=== PATIENT | male | born 1975 | race Caucasian/White ===

== ENCOUNTER 2023-11-17 15:33 | Emergency (ER) | payer OTHER, SELFPAY ==
[2023-11-17 15:46] VITALS: BP 127/86; PULSE 77; RESP 16; TEMP 37.3; O2SAT 98
[2023-11-17] MEDS: TETANUS,DIPHTHERIA,AC PERTUSSIS ADULT (0.5 ML) BOOSTRIX IM (15:56)
--- NOTE | 2023-11-17 15:57 | ED.WOUNDLAC ---
HPI - Wound/Laceration General Chief Complaint: Wound/Laceration Stated Complaint: Cut Finger/Strep Symptoms Time Seen by Provider: 11/17/23 15:52 Source: patient and RN notes reviewed Mode of arrival: ambulatory Limitations: no limitations History of Present Illness HPI narrative: Patient presents today complaining of a laceration to his left 3rd finger that was sustained 6 hours prior to arrival on a piece of metal at home. Denies numbness or tingling in the finger. He is not up-to-date on his tetanus vaccine. He has cleaned the area and splinted it prior to arrival. Currently rates his pain 3/10. Patient is also complaining of sore throat x5 days with mild cough. He has tried [id number] medication for these symptoms prior to arrival, without much relief. Related Data Allergies Allergy/AdvReac Type Severity Reaction Status Date / Time No Known Allergies Allergy Verified 11/17/23 16:09 Review of Systems Review of Systems: CONSTITUTIONAL: Denies body aches, fever, chills, or sweats. EYES: Denies visual changes, redness, or discharge. ENT: Denies rhinorrhea, congestion, or otalgia.+ sore throat CARDIOVASCULAR: Denies chest pain, palpitations, or edema. RESPIRATORY: Denies dyspnea.+ cough GASTROINTESTINAL: Denies abdominal pain, nausea, vomiting, or diarrhea. GENITOURINARY: Denies dysuria or hematuria. SKIN: Denies rash, itching. + finger laceration MUSCULOSKELETAL: Denies back pain, joint pain, or myalgia. NEUROLOGIC: Denies headache, numbness, tingling, or weakness. PSYCH: Denies depression or anxiety. PMFSH Comments At time of signature, I have reviewed and agree with nursing past medical, surgical, social and family history unless otherwise noted. Please see nursing chart for further information. There is no relevant family history pertinent to the presenting complaint Exam Narrative: GENERAL: Well-appearing, well-nourished, and in no acute distress. HEAD: Normocephalic, atraumatic. EYES: EOMI. No redness or drainage. Conjunctivae normal. ENT: Mucous membranes pink and moist. Nares clear. No rhinorrhea. TMs normal bilaterally. Throat normal. Uvula midline. NECK: Normal AROM. Supple. No lymphadenopathy. CHEST: No respiratory distress. Clear to auscultation. HEART: Regular rate and rhythm. No murmur appreciated. EXTREMITIES: 1.5 cm partial-thickness linear laceration along the dorsum of the left 3rd fingers D IP. Distal sensation intact. Capillary refill normal. Full range of motion of the finger against resistance. No active bleeding. SKIN: Warm, dry, no rash. Capillary refill normal. Normal skin turgor. NEURO: No focal deficits. Alert and oriented x3. Gait steady. PSYCH: Normal affect. No signs of depression or anxiety. Course Course Level of Care: Express Care Visit Vital Signs Vital signs: Vital Signs Temperature 99.2 F 11/17/23 15:46 Pulse Rate 77 11/17/23 15:46 Respiratory Rate 16 11/17/23 15:46 Blood Pressure 127/86 11/17/23 15:46 Pulse Oximetry 98 11/17/23 15:46 Temperature 99.2 F 11/17/23 15:46 Pulse Rate 77 11/17/23 15:46 Respiratory Rate 16 11/17/23 15:46 Blood Pressure 127/86 11/17/23 15:46 Pulse Oximetry 98 11/17/23 15:46 Reviewed Procedures Laceration Laceration 1: Time: 16:17 Site: hand Side (If applicable): left Size (cm): 1.5 Description: linear Depth: simple, single layer Local Anesthetic: lidocaine 1% Amount of anesthesia used (mL): 2 Pre-repair: wound explored and irrigated ====== Skin Level ====== Skin layer closed with: nylon Number of sutures: 4 Technique: simple, interrupted ====== Subcutaneous Layer ====== ====== Muscle Layer ====== ====== Tendon Layer ====== Dressing: Nonadherent dressing applied by RN. Patient tolerated procedure well MDM - Wound/Laceration MDM Narrative Medical decision m
== END 2023-11-17 16:23 | disposition home or self-care (01) ==
PROVIDERS: Emergency Provider Nurse Practitioner
DX: S61.213A Laceration without foreign body of left middle finger without damage to nail, initial encounter (principal); W45.8XXA Other foreign body or object entering through skin, initial encounter; Z23 Encounter for immunization; J02.9 Acute pharyngitis, unspecified
CPT/HCPCS: 12002; 87081; 87880; 90471; 90715; 99213; G0463